=== PATIENT | male | born 1970 | race Caucasian/White ===

== ENCOUNTER 2017-02-04 13:51 | Inpatient (IN) | payer MEDICARE, OTHER ==
[~2017-02-04] VITALS: Ht 180.3 cm; Wt 132.0 kg
[~2017-02-04 13:51] MED LIST: VECURONIUM 10 MG ONE
[2017-02-04] MEDS ORDERED: SODIUM CHLORIDE FLUSH 10ML SYR IVF ONE (14:00)
[2017-02-04] MEDS ORDERED: MIDAZOLAM 1 MG/ML, 5ML ONE ×2 (14:11→14:20)
[2017-02-04] MEDS ORDERED: TICAGRELOR 90 MG TABLET ONE ×2 (14:11→14:20)
[2017-02-04] MEDS ORDERED: FENTANYL PF 100 MCG/2ML ONE ×2 (14:11→14:20)
[2017-02-04] MEDS ORDERED: BIVALIRUDIN 250 MG ONE ×2 (14:12→14:20)
[2017-02-04] MEDS ORDERED: LIDOCAINE 2%, 20ML ONE ×2 (14:12→14:20)
[2017-02-04] MEDS ORDERED: MORPHINE PO (14:15)
[2017-02-04] MEDS ORDERED: HEPARIN 1,000 UNITS/ML, 10ML ONE (14:20)
[2017-02-04] MEDS ORDERED: NITROGLYCERIN 0.4 MG BOTTLE (25 TABS) SL PRN (14:30)
[2017-02-04] MEDS ORDERED: morphine SULFATE 10 MG/ML, 1ML IVPush PRN ×2 (14:30→16:00)
[2017-02-04] MEDS ORDERED: NITROGLYCERIN 0.4 MG/SPRAY SL PRN (14:30)
[2017-02-04] MEDS ORDERED: VECURONIUM 10 MG IVPush ONE (14:30)
[2017-02-04] MEDS ORDERED: BIVALIRUDIN 250 MG in DEXTROSE 5% 50 ML IV SCH (15:04)
[2017-02-04 15:20] LABS: MEAN CORPUSCULAR HEMOGLOBIN 33.3 pg (27.5-34.5); MEAN CORPUSCULAR VOLUME 97.9 fL (81-97); MEAN PLATELET VOLUME 7.5 fL (7.4-10.4); PLATELET COUNT 247 x10^3/uL (130-400); RED BLOOD COUNT 4.82 x10^6/uL (4.38-5.82); RED CELL DISTRIBUTION WIDTH 12.9 % (9.4-14.8)
[2017-02-04] MEDS ORDERED: PROPOFOL 100 ML IV ONE (15:26)
[2017-02-04 15:29] LABS: ALBUMIN 3.4 g/dL (3.4-5.0); ANION GAP 9 mmol/L (5-15); CALCIUM 7.8 mg/dL (8.5-10.1); CHLORIDE 107 mmol/L (98-107); CREATININE 0.95 mg/dL (0.7-1.3)
[2017-02-04 15:44] LABS: MD YES
[2017-02-04 15:45] LABS: BAND#(MANUAL) 0.71 x10^3/uL; BANDS%(MANUAL) 3 % (0-7); LYMPH#(MANUAL) 2.13 x10^3/uL (1-3.4); LYMPHS% (MANUAL) 9 % (22-44); MONOS#(MANUAL) 0.47 x10^3/uL (0.3-2.7); MONOS% (MANUAL) 2 % (2-9); SEG#(MANUAL) 20.38 x10^3/uL (1.8-6.8); SEGS% (MANUAL) 86 % (42-75)
[2017-02-04 15:47] LABS: <PLATELET ESTIMATE> ADEQUATE; <PLT MORPHOLOGY> NORMAL PLT MORPH; <RBC MORPHOLOGY> NORMAL
[2017-02-04 16:00] LABS: INTERNATIONAL NORMALIZED RATIO 7.62 (0.93-1.1)
[2017-02-04] MEDS ORDERED: ASPIRIN 300 MG SUPP PR ONE (16:00)
[2017-02-04] MEDS ORDERED: POLYETHYLENE GLYCOL 17 GM PACKET PO PRN (16:00)
[2017-02-04] MEDS ORDERED: ONDANSETRON 2MG/ML, 2ML IVPush PRN (16:00)
[2017-02-04] MEDS ORDERED: LORazepam 2 MG/ML, 1ML IVPush PRN (16:00)
[2017-02-04] MEDS ORDERED: OXYcodone IR 5MG TABLET PO PRN (16:00)
[2017-02-04 16:01] LABS: PROTHROMBIN TIME 75.4 Seconds (9.6-11.5)
[2017-02-04] MEDS ORDERED: LEVETIRACETAM 100 MG/ML, 5ML IV SCH (16:30)
[2017-02-04 16:38] LABS: THYROID STIMULATING HORMONE 0.797 mIU/L (0.358-3.740)
[2017-02-04] MEDS ORDERED: DEXMEDETOMIDINE 200 MCG in SODIUM CHLORIDE 0.9% 48 ML IV PRN (17:11)
[2017-02-04] MEDS: ALBUTEROL/IPRATROPIUM 2.5MG/0.5MG, 3 ML INLINE SCH ×2 (17:30→21:30)
[2017-02-04] MEDS ORDERED: SENNOSIDES 8.8 MG/5 ML ORAL SOL NG PRN (17:30)
[2017-02-04] MEDS ORDERED: VECURONIUM 10 MG IVPush PRN (17:30)
[2017-02-04] MEDS: KSCALE TO 4.0 IV SCH ×2 (17:30→21:30)
[2017-02-04] MEDS ORDERED: SENNA/DOCUSATE TABLET NG PRN (17:30)
[2017-02-04] MEDS ORDERED: PHARMACY MAY ADJ FOR RENAL FX MC SCH (17:30)
[2017-02-04] MEDS ORDERED: LIDOCAINE-MPF 1%, 2ML ENDO PRN (17:30)
[2017-02-04] MEDS: OCULAR LUBRICANT OPHTH OINT 3.5 GM EACHEYE SCH (17:30)
[2017-02-04] MEDS ORDERED: LACTULOSE 20 GM/30 ML UDC NG PRN (17:30)
[2017-02-04] MEDS ORDERED: BISACODYL 10 MG SUPP PR PRN (17:30)
[2017-02-04] MEDS ORDERED: FENTANYL PF 100 MCG/2ML IVPush PRN (17:30)
[2017-02-04] MEDS ORDERED: SODIUM PHOSPHATE 20 MMOL in SODIUM CHLORIDE 0.9% 250 ML IVPB PRN (18:00)
[2017-02-04] MEDS: LEVETIRACETAM 500 MG in SODIUM CHLORIDE 0.9% 100 ML IV SCH (18:25)
[2017-02-04] MEDS: NS + 20MEQ KCL 1,000 ML IV SCH (18:37)
[2017-02-04 18:40] LABS: MICROSCOPIC INDICATED
[2017-02-04] MEDS: PROPOFOL 100 ML IV PRN ×3 (18:42→23:32)
[2017-02-04] MEDS: METOPROLOL TARTRATE 25 MG TABLET PO SCH (18:43)
[2017-02-04] MEDS: BUSPIRONE 10 MG TABLET NG SCH (18:43)
[2017-02-04] MEDS: FAMOTIDINE 20 MG/2 ML IV SCH (18:44)
[2017-02-04] MEDS: FENTANYL PF 250 MCG in SODIUM CHLORIDE 0.9% 250 ML IV PRN (21:19)
[2017-02-04] MEDS: FAMOTIDINE 20 MG/2 ML IVPush SCH (21:20)
[2017-02-04] MEDS: TICAGRELOR 90 MG TABLET PO SCH (21:22)
[2017-02-04] MEDS: ATORVASTATIN 80 MG TABLET PO SCH (21:22)
[2017-02-04] MEDS: MAGNESIUM SULFATE 1 GM in SODIUM CHLORIDE 0.9% 50 ML IVPB PRN (22:16)
[2017-02-05] MEDS: ALBUTEROL/IPRATROPIUM 2.5MG/0.5MG, 3 ML INLINE SCH ×6 (01:30→21:30)
[2017-02-05] MEDS: OCULAR LUBRICANT OPHTH OINT 3.5 GM EACHEYE SCH ×3 (01:30→17:42)
[2017-02-05] MEDS: KSCALE TO 4.0 IV SCH ×6 (01:30→21:30)
[2017-02-05] MEDS: BUSPIRONE 10 MG TABLET NG SCH ×3 (01:40→17:42)
[2017-02-05] MEDS: PROPOFOL 100 ML IV PRN ×5 (02:27→18:59)
[2017-02-05 03:52] VITALS: BP 122/80
[2017-02-05 04:56] LABS: BASOPHILS # (AUTO) 0.04 x10^3/uL (0-0.1); BASOPHILS % (AUTO) 0 % (0-1); EOSINOPHILS % (AUTO) 0 % (1-7); LYMPHOCYTES # (AUTO) 1.45 x10^3/uL (1-3.4); LYMPHOCYTES % (AUTO) 11 % (22-44); MD NO; MEAN CORPUSCULAR HEMOGLOBIN 33.5 pg (27.5-34.5); MEAN CORPUSCULAR HGB CONC 34.3 g/dL (33.2-36.2); MEAN CORPUSCULAR VOLUME 97.8 fL (81-97); MEAN PLATELET VOLUME 7.6 fL (7.4-10.4); MONOCYTES # (AUTO) 0.81 x10^3/uL (0.2-0.8); MONOCYTES % (AUTO) 6 % (2-9); NEUTROPHILS # (AUTO) 11.21 x10^3/uL (1.8-6.8); NEUTROPHILS % (AUTO) 83 % (42-75); PLATELET COUNT 212 x10^3/uL (130-400); RED BLOOD COUNT 5.12 x10^6/uL (4.38-5.82); RED CELL DISTRIBUTION WIDTH 13.1 % (9.4-14.8)
[2017-02-05] MEDS: LEVETIRACETAM 500 MG in SODIUM CHLORIDE 0.9% 100 ML IV SCH ×2 (04:59→17:41)
[2017-02-05 05:01] LABS: ALBUMIN 3.2 g/dL (3.4-5.0); ANION GAP 7 mmol/L (5-15); CALCIUM 7.9 mg/dL (8.5-10.1); CHLORIDE 110 mmol/L (98-107); CREATININE 0.55 mg/dL (0.7-1.3)
[2017-02-05 05:03] LABS: ALANINE AMINOTRANSFERASE 131 U/L (12-78); ALBUMIN 3.2 g/dL (3.4-5.0); ANION GAP 8 mmol/L (5-15); CHLORIDE 110 mmol/L (98-107); CREATININE 0.59 mg/dL (0.7-1.3)
[2017-02-05 05:07] LABS: ALKALINE PHOSPHATASE 90 U/L (45-117); BILIRUBIN,TOTAL 0.7 mg/dL (0.2-1.0); CHOL/HDL RATIO 6.7; CHOLESTEROL, TOTAL 194 mg/dL (140-239); HDL CHOL % 15 % (26-37); HDL CHOLESTEROL (DIRECT) 29 mg/dL (40-60); LDL CHOLESTEROL,CALCULATED 123 mg/dL (54-169); LDL/HDL RATIO 4.2 (0.5-3.0); TOTAL PROTEIN 6.5 g/dL (6.4-8.2); TRIGLYCERIDES 210 mg/dL (50-200); VLDL CHOLESTEROL 42 mg/dL (0-25)
[2017-02-05] MEDS: FAMOTIDINE 20 MG/2 ML IV SCH (05:36)
[2017-02-05] MEDS: METOPROLOL TARTRATE 25 MG TABLET PO SCH ×2 (05:41→17:42)
[2017-02-05] MEDS: NS + 20MEQ KCL 1,000 ML IV SCH ×2 (06:16→17:41)
[2017-02-05] MEDS: ASPIRIN 81 MG TABLET EC PO SCH (08:27)
[2017-02-05] MEDS: SENNA/DOCUSATE TABLET PO SCH (08:27)
[2017-02-05] MEDS: FAMOTIDINE 20 MG/2 ML IVPush SCH ×2 (08:27→21:15)
[2017-02-05] MEDS: TICAGRELOR 90 MG TABLET PO SCH ×2 (08:27→21:15)
[2017-02-05] MEDS ORDERED: ASPIRIN 325 MG TABLET EC PO SCH (09:00)
[2017-02-05 13:12] LABS: INTERNATIONAL NORMALIZED RATIO 0.98 (0.93-1.1); PROTHROMBIN TIME 10.1 Seconds (9.6-11.5)
[2017-02-05] MEDS: FENTANYL PF 250 MCG in SODIUM CHLORIDE 0.9% 250 ML IV PRN (17:42)
[2017-02-05] MEDS: ATORVASTATIN 80 MG TABLET PO SCH (21:15)
[2017-02-06] MEDS: BUSPIRONE 10 MG TABLET NG SCH ×2 (01:30→09:17)
[2017-02-06] MEDS ORDERED: SODIUM CHLORIDE 0.9%, 500ML IVBOLUS ONE ×2 (01:30→08:00)
[2017-02-06] MEDS ORDERED: DOPAMINE/D5W PMX 250 ML IV PRN (01:30)
[2017-02-06] MEDS: KSCALE TO 4.0 IV SCH ×6 (01:30→21:30)
[2017-02-06] MEDS: ALBUTEROL/IPRATROPIUM 2.5MG/0.5MG, 3 ML INLINE SCH ×5 (01:30→22:30)
[2017-02-06] MEDS: OCULAR LUBRICANT OPHTH OINT 3.5 GM EACHEYE SCH ×3 (02:51→17:43)
[2017-02-06] MEDS ORDERED: SODIUM CHLORIDE 0.9% 1,000ML IVBOLUS ONE (03:00)
[2017-02-06] MEDS ORDERED: AMIODARONE 150 MG in DEXTROSE 5% 100 ML IV ONE (03:00)
[2017-02-06] MEDS ORDERED: PHENYLEPHRINE 20 MG in SODIUM CHLORIDE 0.9% 248 ML IV PRN (03:30)
[2017-02-06 04:00] VITALS: BP 92/67
[2017-02-06] MEDS: PROPOFOL 100 ML IV PRN ×6 (04:35→23:23)
[2017-02-06] MEDS: METOPROLOL TARTRATE 25 MG TABLET PO SCH ×2 (06:00→17:46)
[2017-02-06] MEDS: LEVETIRACETAM 500 MG in SODIUM CHLORIDE 0.9% 100 ML IV SCH ×2 (06:00→17:43)
[2017-02-06 06:09] LABS: MEAN CORPUSCULAR HEMOGLOBIN 33.8 pg (27.5-34.5); MEAN CORPUSCULAR HGB CONC 34.2 g/dL (33.2-36.2); MEAN CORPUSCULAR VOLUME 98.7 fL (81-97); MEAN PLATELET VOLUME 8.3 fL (7.4-10.4); PLATELET COUNT 227 x10^3/uL (130-400); RED BLOOD COUNT 5.12 x10^6/uL (4.38-5.82); RED CELL DISTRIBUTION WIDTH 13.9 % (9.4-14.8)
[2017-02-06 06:19] LABS: CHLORIDE 110 mmol/L (98-107)
[2017-02-06 06:32] LABS: ANION GAP 9 mmol/L (5-15); CALCIUM 7.7 mg/dL (8.5-10.1)
[2017-02-06] MEDS ORDERED: NOREPINEPHRINE 4 MG in SODIUM CHLORIDE 0.9% 246 ML IV PRN (07:30)
[2017-02-06 07:48] LABS: MD YES
[2017-02-06 08:03] LABS: LYMPH#(MANUAL) 1.21 x10^3/uL (1-3.4); LYMPHS% (MANUAL) 6 % (22-44); MONOS% (MANUAL) 4 % (2-9)
[2017-02-06 08:04] LABS: <PLATELET ESTIMATE> ADEQUATE; <PLT MORPHOLOGY> NORMAL PLT MORPH; ANISOCYTOSIS 1+; BAND#(MANUAL) 2.41 x10^3/uL; BANDS%(MANUAL) 12 % (0-7); SEG#(MANUAL) 15.68 x10^3/uL (1.8-6.8); SEGS% (MANUAL) 78 % (42-75)
[2017-02-06] MEDS: ASPIRIN 81 MG TABLET EC PO SCH (09:17)
[2017-02-06] MEDS: SENNA/DOCUSATE TABLET PO SCH (09:17)
[2017-02-06] MEDS: FAMOTIDINE 20 MG/2 ML IVPush SCH ×2 (09:17→21:20)
[2017-02-06] MEDS: TICAGRELOR 90 MG TABLET PO SCH ×2 (09:17→21:20)
[2017-02-06] MEDS: PIPERACILLIN/TAZO/PMX 3.375GM 50 ML IV SCH ×3 (11:11→23:02)
[2017-02-06] MEDS: NS + 20MEQ KCL 1,000 ML IV SCH (11:12)
[2017-02-06] MEDS: SODIUM BICARBONATE 8.4% 150 MEQ in DEXTROSE 5% 1,000 ML IV SCH ×2 (11:55→23:05)
[2017-02-06] MEDS: MAGNESIUM SULFATE 1 GM in SODIUM CHLORIDE 0.9% 50 ML IVPB PRN ×2 (15:07→23:11)
[2017-02-06] MEDS ORDERED: FUROSEMIDE 20 MG/2 ML IV ONE (16:30)
[2017-02-06] MEDS: FENTANYL PF 250 MCG in SODIUM CHLORIDE 0.9% 250 ML IV PRN (17:49)
[2017-02-06] MEDS: ATORVASTATIN 80 MG TABLET PO SCH (21:20)
[2017-02-06] MEDS: AMIODARONE 900 MG in DEXTROSE 5% 482 ML IV PRN (23:04)
[2017-02-07] MEDS: FENTANYL PF 250 MCG in SODIUM CHLORIDE 0.9% 250 ML IV PRN ×4 (00:54→20:03)
[2017-02-07] MEDS: KSCALE TO 4.0 IV SCH ×2 (01:30→05:30)
[2017-02-07] MEDS: ALBUTEROL/IPRATROPIUM 2.5MG/0.5MG, 3 ML INLINE SCH ×6 (02:00→22:35)
[2017-02-07] MEDS: OCULAR LUBRICANT OPHTH OINT 3.5 GM EACHEYE SCH ×3 (02:07→17:30)
[2017-02-07] MEDS: PROPOFOL 100 ML IV PRN ×5 (03:32→23:30)
[2017-02-07] MEDS: LEVETIRACETAM 500 MG in SODIUM CHLORIDE 0.9% 100 ML IV SCH ×2 (04:30→17:58)
[2017-02-07 05:00] LABS: MEAN CORPUSCULAR HEMOGLOBIN 33.6 pg (27.5-34.5); MEAN CORPUSCULAR HGB CONC 34.2 g/dL (33.2-36.2); MEAN CORPUSCULAR VOLUME 98.3 fL (81-97); PLATELET COUNT 141 x10^3/uL (130-400); RED BLOOD COUNT 4.57 x10^6/uL (4.38-5.82); RED CELL DISTRIBUTION WIDTH 13.7 % (9.4-14.8)
[2017-02-07] MEDS: PIPERACILLIN/TAZO/PMX 3.375GM 50 ML IV SCH ×4 (05:10→23:28)
[2017-02-07 05:12] LABS: ANION GAP 9 mmol/L (5-15); CALCIUM 6.9 mg/dL (8.5-10.1); CHLORIDE 111 mmol/L (98-107); CREATININE 1.05 mg/dL (0.7-1.3); TRIGLYCERIDES 198 mg/dL (50-200)
[2017-02-07] MEDS: METOPROLOL TARTRATE 25 MG TABLET PO SCH ×2 (05:13→18:00)
[2017-02-07] MEDS ORDERED: POTASSIUM CHLORIDE PMX 100 ML IV ONE (06:00)
[2017-02-07 06:11] LABS: MD YES
[2017-02-07 06:13] LABS: BANDS%(MANUAL) 16 % (0-7); LYMPH#(MANUAL) 0.78 x10^3/uL (1-3.4); LYMPHS% (MANUAL) 4 % (22-44); MONOS#(MANUAL) 0.78 x10^3/uL (0.3-2.7); MONOS% (MANUAL) 4 % (2-9); SEG#(MANUAL) 14.74 x10^3/uL (1.8-6.8); SEGS% (MANUAL) 76 % (42-75)
[2017-02-07 06:14] LABS: <PLT MORPHOLOGY> NORMAL PLT MORPH; <RBC MORPHOLOGY> NORMAL
[2017-02-07 06:16] LABS: <PLATELET ESTIMATE> ADEQUATE
[2017-02-07] MEDS: FAMOTIDINE 20 MG/2 ML IVPush SCH ×2 (10:41→20:30)
[2017-02-07] MEDS: TICAGRELOR 90 MG TABLET PO SCH ×2 (10:42→20:30)
[2017-02-07] MEDS: SENNA/DOCUSATE TABLET PO SCH (10:42)
[2017-02-07] MEDS: ASPIRIN 81 MG TABLET EC PO SCH (10:42)
[2017-02-07] MEDS ORDERED: SODIUM CHLORIDE 0.9% 100 ML IV SCH (14:00)
[2017-02-07] MEDS ORDERED: SODIUM CHLORIDE 0.9%, 500ML IVBOLUS ONE (16:00)
[2017-02-07] MEDS: SODIUM BICARBONATE 8.4% 150 MEQ in DEXTROSE 5% 1,000 ML IV SCH (20:03)
[2017-02-07] MEDS: ATORVASTATIN 80 MG TABLET PO SCH (20:30)
[2017-02-07] MEDS ORDERED: FENTANYL IV PRN (21:00)
[2017-02-07] MEDS ORDERED: SODIUM CHLORIDE 0.9% IV PRN (21:00)
[2017-02-08] MEDS: ALBUTEROL/IPRATROPIUM 2.5MG/0.5MG, 3 ML INLINE SCH ×6 (02:40→22:01)
[2017-02-08] MEDS: OCULAR LUBRICANT OPHTH OINT 3.5 GM EACHEYE SCH ×3 (03:49→18:05)
[2017-02-08 04:30] LABS: ANION GAP 8 mmol/L (5-15); CALCIUM 6.8 mg/dL (8.5-10.1); CHLORIDE 106 mmol/L (98-107); CREATININE 1.46 mg/dL (0.7-1.3); MEAN CORPUSCULAR HEMOGLOBIN 33.3 pg (27.5-34.5); MEAN CORPUSCULAR VOLUME 98.1 fL (81-97); MEAN PLATELET VOLUME 8.5 fL (7.4-10.4); PLATELET COUNT 143 x10^3/uL (130-400); RED BLOOD COUNT 4.22 x10^6/uL (4.38-5.82)
[2017-02-08] MEDS: LEVETIRACETAM 500 MG in SODIUM CHLORIDE 0.9% 100 ML IV SCH ×2 (04:57→17:24)
[2017-02-08] MEDS: METOPROLOL TARTRATE 25 MG TABLET PO SCH ×2 (05:08→18:00)
[2017-02-08 05:26] LABS: MD YES
[2017-02-08] MEDS: PIPERACILLIN/TAZO/PMX 3.375GM 50 ML IV SCH ×4 (05:26→22:59)
[2017-02-08] MEDS: FILTER 0.22 MICRON IV PRN (05:26)
[2017-02-08 05:28] LABS: <PLATELET ESTIMATE> ADEQUATE; <PLT MORPHOLOGY> NORMAL PLT MORPH; ANISOCYTOSIS 1+; BAND#(MANUAL) 2.59 x10^3/uL; BANDS%(MANUAL) 18 % (0-7); LYMPHS% (MANUAL) 9 % (22-44); MONOS#(MANUAL) 0.14 x10^3/uL (0.3-2.7); MONOS% (MANUAL) 1 % (2-9); SEG#(MANUAL) 10.37 x10^3/uL (1.8-6.8); SEGS% (MANUAL) 72 % (42-75)
[2017-02-08] MEDS: AMIODARONE 900 MG in DEXTROSE 5% 482 ML IV PRN (05:28)
[2017-02-08] MEDS: PROPOFOL 100 ML IV PRN ×7 (05:34→22:38)
[2017-02-08] MEDS: ASPIRIN 81 MG TABLET EC PO SCH (09:18)
[2017-02-08] MEDS: SENNA/DOCUSATE TABLET PO SCH (09:18)
[2017-02-08] MEDS: TICAGRELOR 90 MG TABLET PO SCH ×2 (09:18→21:18)
[2017-02-08] MEDS: FAMOTIDINE 20 MG/2 ML IVPush SCH ×2 (09:18→21:18)
[2017-02-08] MEDS: SODIUM BICARBONATE 8.4% 150 MEQ in DEXTROSE 5% 1,000 ML IV SCH ×2 (09:18→18:04)
[2017-02-08] MEDS: VECURONIUM 50 MG in SODIUM CHLORIDE 0.9% 250 ML IV PRN ×3 (09:19→20:15)
[2017-02-08] MEDS ORDERED: FENTANYL IV PRN (10:00)
[2017-02-08] MEDS ORDERED: SODIUM CHLORIDE 0.9% IV PRN (10:00)
[2017-02-08] MEDS: HEPARIN 5,000 UNITS/ML, 1ML SQ SCH ×2 (10:44→19:15)
[2017-02-08] MEDS: SODIUM CHLORIDE 0.9% IV PRN (18:05)
[2017-02-08] MEDS: FENTANYL IV PRN (18:05)
[2017-02-08] MEDS ORDERED: FUROSEMIDE 20 MG/2 ML IV ONE ×2 (20:00→22:00)
[2017-02-08] MEDS: ATORVASTATIN 80 MG TABLET PO SCH (21:18)
[2017-02-09] MEDS: FENTANYL IV PRN ×3 (00:56→20:00)
[2017-02-09] MEDS: SODIUM CHLORIDE 0.9% IV PRN ×3 (00:56→20:00)
[2017-02-09] MEDS: OCULAR LUBRICANT OPHTH OINT 3.5 GM EACHEYE SCH ×3 (00:57→17:32)
[2017-02-09] MEDS: ALBUTEROL/IPRATROPIUM 2.5MG/0.5MG, 3 ML INLINE SCH ×7 (01:55→22:09)
[2017-02-09] MEDS: HEPARIN 5,000 UNITS/ML, 1ML SQ SCH ×3 (02:15→18:36)
[2017-02-09] MEDS: LEVETIRACETAM 500 MG in SODIUM CHLORIDE 0.9% 100 ML IV SCH ×2 (04:28→17:11)
[2017-02-09 04:44] LABS: MEAN CORPUSCULAR HEMOGLOBIN 33.7 pg (27.5-34.5); MEAN CORPUSCULAR HGB CONC 34.2 g/dL (33.2-36.2); MEAN CORPUSCULAR VOLUME 98.4 fL (81-97); MEAN PLATELET VOLUME 8.1 fL (7.4-10.4); PLATELET COUNT 137 x10^3/uL (130-400); RED BLOOD COUNT 3.97 x10^6/uL (4.38-5.82); RED CELL DISTRIBUTION WIDTH 14.1 % (9.4-14.8)
[2017-02-09 04:57] LABS: CHLORIDE 103 mmol/L (98-107)
[2017-02-09 05:04] LABS: ALANINE AMINOTRANSFERASE 38 U/L (12-78); ALBUMIN 1.7 g/dL (3.4-5.0); ALKALINE PHOSPHATASE 89 U/L (45-117); ANION GAP 4 mmol/L (5-15); CALCIUM 7.3 mg/dL (8.5-10.1); CREATININE 1.39 mg/dL (0.7-1.3); TOTAL PROTEIN 5.1 g/dL (6.4-8.2)
[2017-02-09] MEDS: PIPERACILLIN/TAZO/PMX 3.375GM 50 ML IV SCH (05:19)
[2017-02-09] MEDS: METOPROLOL TARTRATE 25 MG TABLET PO SCH ×2 (05:23→18:36)
[2017-02-09] MEDS: SODIUM BICARBONATE 8.4% 150 MEQ in DEXTROSE 5% 1,000 ML IV SCH ×3 (05:42→22:48)
[2017-02-09] MEDS: PROPOFOL 100 ML IV PRN ×4 (05:49→20:49)
[2017-02-09 05:50] LABS: BASOPHILS % (AUTO) 0 % (0-1); EOSINOPHILS # (AUTO) 0.15 x10^3/uL (0-0.4); EOSINOPHILS % (AUTO) 1 % (1-7); LYMPHOCYTES # (AUTO) 1.08 x10^3/uL (1-3.4); LYMPHOCYTES % (AUTO) 8 % (22-44); MD SCAN; MONOCYTES # (AUTO) 0.04 x10^3/uL (0.2-0.8); MONOCYTES % (AUTO) 0 % (2-9); NEUTROPHILS # (AUTO) 11.58 x10^3/uL (1.8-6.8); NEUTROPHILS % (AUTO) 90 % (42-75)
[2017-02-09] MEDS: CEFAZOLIN PMX 2GM/50ML 50 ML IVPB SCH ×2 (09:01→17:26)
[2017-02-09] MEDS: POTASSIUM CHLORIDE PMX 100 ML IV SCH ×2 (09:04→20:09)
[2017-02-09] MEDS: ASPIRIN 81 MG TABLET EC PO SCH (09:19)
[2017-02-09] MEDS: TICAGRELOR 90 MG TABLET PO SCH ×2 (09:19→20:19)
[2017-02-09] MEDS: SENNA/DOCUSATE TABLET PO SCH (09:19)
[2017-02-09] MEDS: ALBUMIN HUMAN 25% 100 ML IV SCH ×2 (09:20→20:09)
[2017-02-09] MEDS: AMIODARONE 900 MG in DEXTROSE 5% 482 ML IV PRN (09:20)
[2017-02-09] MEDS: FAMOTIDINE 20 MG/2 ML IVPush SCH ×2 (09:20→20:19)
[2017-02-09] MEDS ORDERED: FENTANYL IV PRN (10:00)
[2017-02-09] MEDS ORDERED: SODIUM CHLORIDE 0.9% IV PRN (10:00)
[2017-02-09] MEDS: FUROSEMIDE 40 MG/4 ML IV SCH ×2 (11:50→17:26)
[2017-02-09] MEDS: ATORVASTATIN 80 MG TABLET PO SCH (20:19)
[2017-02-10] MEDS: VECURONIUM 50 MG in SODIUM CHLORIDE 0.9% 250 ML IV PRN (00:01)
[2017-02-10] MEDS: OCULAR LUBRICANT OPHTH OINT 3.5 GM EACHEYE SCH ×3 (02:08→17:04)
[2017-02-10] MEDS: PROPOFOL 100 ML IV PRN ×6 (02:09→21:39)
[2017-02-10] MEDS: HEPARIN 5,000 UNITS/ML, 1ML SQ SCH ×3 (02:11→17:51)
[2017-02-10] MEDS: ALBUTEROL/IPRATROPIUM 2.5MG/0.5MG, 3 ML INLINE SCH ×5 (03:08→22:37)
[2017-02-10 04:34] LABS: MEAN CORPUSCULAR HEMOGLOBIN 33.1 pg (27.5-34.5); MEAN CORPUSCULAR HGB CONC 33.4 g/dL (33.2-36.2); MEAN CORPUSCULAR VOLUME 99.1 fL (81-97); MEAN PLATELET VOLUME 7.9 fL (7.4-10.4); PLATELET COUNT 129 x10^3/uL (130-400); RED BLOOD COUNT 3.92 x10^6/uL (4.38-5.82); RED CELL DISTRIBUTION WIDTH 14.1 % (9.4-14.8)
[2017-02-10] MEDS: LEVETIRACETAM 500 MG in SODIUM CHLORIDE 0.9% 100 ML IV SCH ×2 (04:34→17:02)
[2017-02-10 04:43] LABS: CALCIUM 7.5 mg/dL (8.5-10.1); CHLORIDE 96 mmol/L (98-107)
[2017-02-10 04:44] LABS: TRIGLYCERIDES 310 mg/dL (50-200)
[2017-02-10] MEDS: FENTANYL IV PRN ×2 (04:51→16:33)
[2017-02-10] MEDS: SODIUM CHLORIDE 0.9% IV PRN ×2 (04:51→16:33)
[2017-02-10 04:53] LABS: MD YES
[2017-02-10 04:54] LABS: ANISOCYTOSIS 1+; BAND#(MANUAL) 0.89 x10^3/uL; BANDS%(MANUAL) 6 % (0-7); LYMPH#(MANUAL) 0.75 x10^3/uL (1-3.4); LYMPHS% (MANUAL) 5 % (22-44); MONOS#(MANUAL) 0.15 x10^3/uL (0.3-2.7); MONOS% (MANUAL) 1 % (2-9); SEG#(MANUAL) 13.11 x10^3/uL (1.8-6.8); SEGS% (MANUAL) 88 % (42-75)
[2017-02-10 04:55] LABS: BASOPHILLIC STIPPLING 1+; POLYCHROMASIA 1+
[2017-02-10 04:56] LABS: <PLATELET ESTIMATE> ADEQUATE; <PLT MORPHOLOGY> NORMAL PLT MORPH
[2017-02-10 05:01] LABS: ANION GAP 7 mmol/L (5-15)
[2017-02-10] MEDS: METOPROLOL TARTRATE 25 MG TABLET PO SCH ×2 (05:27→17:51)
[2017-02-10] MEDS: SODIUM BICARBONATE 8.4% 150 MEQ in DEXTROSE 5% 1,000 ML IV SCH ×2 (07:04→17:51)
[2017-02-10] MEDS: CEFAZOLIN PMX 2GM/50ML 50 ML IVPB SCH ×3 (08:14→16:39)
[2017-02-10] MEDS: TICAGRELOR 90 MG TABLET PO SCH ×2 (08:17→21:32)
[2017-02-10] MEDS: ASPIRIN 81 MG TABLET EC PO SCH (08:17)
[2017-02-10] MEDS: SENNA/DOCUSATE TABLET PO SCH (08:17)
[2017-02-10] MEDS: FAMOTIDINE 20 MG/2 ML IVPush SCH ×2 (08:17→21:32)
[2017-02-10] MEDS: AMIODARONE 900 MG in DEXTROSE 5% 482 ML IV PRN (16:32)
[2017-02-10 17:08] LABS: CHLORIDE,URINE RANDOM 14 mmol/L; POTASSIUM,URINE RANDOM 42 mmol/L; SODIUM,URINE RANDOM 7 mmol/L
[2017-02-10] MEDS: ATORVASTATIN 80 MG TABLET PO SCH (21:32)
[2017-02-11] MEDS: PROPOFOL 100 ML IV PRN ×3 (00:16→08:04)
[2017-02-11] MEDS: CEFAZOLIN PMX 2GM/50ML 50 ML IVPB SCH ×3 (00:16→16:36)
[2017-02-11] MEDS: OCULAR LUBRICANT OPHTH OINT 3.5 GM EACHEYE SCH ×3 (00:17→17:30)
[2017-02-11] MEDS: ALBUTEROL/IPRATROPIUM 2.5MG/0.5MG, 3 ML INLINE SCH ×6 (02:50→22:00)
[2017-02-11] MEDS: SODIUM CHLORIDE 0.9% IV PRN (03:34)
[2017-02-11] MEDS: FENTANYL IV PRN (03:34)
[2017-02-11] MEDS: HEPARIN 5,000 UNITS/ML, 1ML SQ SCH ×3 (04:21→22:27)
[2017-02-11 04:52] LABS: MEAN CORPUSCULAR HEMOGLOBIN 33.3 pg (27.5-34.5); MEAN CORPUSCULAR HGB CONC 33.7 g/dL (33.2-36.2); MEAN CORPUSCULAR VOLUME 98.9 fL (81-97); MEAN PLATELET VOLUME 7.7 fL (7.4-10.4); PLATELET COUNT 132 x10^3/uL (130-400); RED BLOOD COUNT 3.75 x10^6/uL (4.38-5.82); RED CELL DISTRIBUTION WIDTH 13.9 % (9.4-14.8)
[2017-02-11] MEDS: METOPROLOL TARTRATE 25 MG TABLET PO SCH ×2 (05:01→18:11)
[2017-02-11] MEDS: LEVETIRACETAM 500 MG in SODIUM CHLORIDE 0.9% 100 ML IV SCH ×2 (05:01→18:00)
[2017-02-11 05:03] LABS: ANION GAP 3 mmol/L (5-15); CALCIUM 8.1 mg/dL (8.5-10.1); CHLORIDE 94 mmol/L (98-107); CREATININE 1.19 mg/dL (0.7-1.3)
[2017-02-11 05:21] LABS: MD YES
[2017-02-11 05:23] LABS: <PLATELET ESTIMATE> ADEQUATE; <PLT MORPHOLOGY> NORMAL PLT MORPH; ANISOCYTOSIS 1+; BANDS%(MANUAL) 7 % (0-7); BASOPHILLIC STIPPLING 1+; EOS#(MANUAL) 0.34 x10^3/uL (0.0-0.4); EOS% (MANUAL) 3 % (1-7); LYMPHS% (MANUAL) 14 % (22-44); METAMYELOCYTES# (MANUAL) 0.23 x10^3/uL (0-0); METAMYELOCYTES% (MANUAL) 2 % (0-1); MONOS#(MANUAL) 0.46 x10^3/uL (0.3-2.7); MONOS% (MANUAL) 4 % (2-9); POLYCHROMASIA 1+; SEG#(MANUAL) 7.98 x10^3/uL (1.8-6.8); SEGS% (MANUAL) 70 % (42-75)
[2017-02-11] MEDS: SODIUM BICARBONATE 8.4% 150 MEQ in DEXTROSE 5% 1,000 ML IV SCH (06:16)
[2017-02-11] MEDS: FAMOTIDINE 20 MG/2 ML IVPush SCH ×2 (08:08→22:29)
[2017-02-11] MEDS: TICAGRELOR 90 MG TABLET PO SCH ×2 (08:08→22:27)
[2017-02-11] MEDS: POTASSIUM CHLORIDE 10% 40 MEQ/30 ML UDC PO SCH ×2 (08:08→22:27)
[2017-02-11] MEDS: ASPIRIN 81 MG TABLET EC PO SCH (08:08)
[2017-02-11] MEDS: SENNA/DOCUSATE TABLET PO SCH (08:09)
[2017-02-11] MEDS: ENALAPRILAT 1.25 MG/ML, 2ML IVPush PRN ×2 (08:33→12:50)
[2017-02-11] MEDS: hydrALAzine 20 MG/ML, 1ML IV PRN (10:59)
[2017-02-11] MEDS: ALBUMIN HUMAN 25% 100 ML IV SCH ×2 (11:00→22:27)
[2017-02-11] MEDS ORDERED: LABETALOL 5MG/ML, 20ML IVPush ONE (12:00)
[2017-02-11] MEDS: METHYLNALTREXONE 12 MG/0.6 ML SQ SCH (12:42)
[2017-02-11] MEDS: FUROSEMIDE 40 MG/4 ML IV SCH (12:50)
[2017-02-11] MEDS: morphine SULFATE 125 MG in SODIUM CHLORIDE 0.9% 237.5 ML IV PRN (18:00)
[2017-02-11] MEDS: ATORVASTATIN 80 MG TABLET PO SCH (22:27)
[2017-02-11] MEDS: FILTER 0.22 MICRON IV PRN (23:45)
[2017-02-11] MEDS: AMIODARONE 900 MG in DEXTROSE 5% 482 ML IV PRN (23:45)
[2017-02-12] MEDS: PROPOFOL 100 ML IV PRN ×2 (00:13→06:38)
[2017-02-12] MEDS: FUROSEMIDE 40 MG/4 ML IV SCH ×3 (01:04→22:52)
[2017-02-12] MEDS: OCULAR LUBRICANT OPHTH OINT 3.5 GM EACHEYE SCH ×3 (01:05→17:15)
[2017-02-12] MEDS: CEFAZOLIN PMX 2GM/50ML 50 ML IVPB SCH ×3 (01:05→17:07)
[2017-02-12] MEDS: ALBUTEROL/IPRATROPIUM 2.5MG/0.5MG, 3 ML INLINE SCH ×6 (02:00→22:00)
[2017-02-12 04:23] LABS: MEAN CORPUSCULAR HEMOGLOBIN 33.4 pg (27.5-34.5); MEAN CORPUSCULAR HGB CONC 34.4 g/dL (33.2-36.2); MEAN CORPUSCULAR VOLUME 97.2 fL (81-97); MEAN PLATELET VOLUME 7.3 fL (7.4-10.4); PLATELET COUNT 146 x10^3/uL (130-400); RED BLOOD COUNT 3.86 x10^6/uL (4.38-5.82)
[2017-02-12 04:33] LABS: ANION GAP 7 mmol/L (5-15); CALCIUM 8.4 mg/dL (8.5-10.1); CHLORIDE 97 mmol/L (98-107); CREATININE 1.25 mg/dL (0.7-1.3)
[2017-02-12] MEDS: LEVETIRACETAM 500 MG in SODIUM CHLORIDE 0.9% 100 ML IV SCH ×2 (05:32→18:13)
[2017-02-12] MEDS: METOPROLOL TARTRATE 25 MG TABLET PO SCH ×2 (05:33→17:17)
[2017-02-12] MEDS: HEPARIN 5,000 UNITS/ML, 1ML SQ SCH ×3 (05:33→21:02)
[2017-02-12 05:58] LABS: MD YES
[2017-02-12 06:00] LABS: ANISOCYTOSIS 1+; BAND#(MANUAL) 0.71 x10^3/uL; BANDS%(MANUAL) 5 % (0-7); LYMPH#(MANUAL) 0.56 x10^3/uL (1-3.4); LYMPHS% (MANUAL) 4 % (22-44); METAMYELOCYTES# (MANUAL) 0.28 x10^3/uL (0-0); METAMYELOCYTES% (MANUAL) 2 % (0-1); MONOS#(MANUAL) 1.27 x10^3/uL (0.3-2.7); MONOS% (MANUAL) 9 % (2-9); POLYCHROMASIA 1+; SEG#(MANUAL) 11.28 x10^3/uL (1.8-6.8); SEGS% (MANUAL) 80 % (42-75)
[2017-02-12 06:01] LABS: TOXIC GRAN 1+
[2017-02-12 06:03] LABS: <PLATELET ESTIMATE> ADEQUATE; <PLT MORPHOLOGY> NORMAL PLT MORPH
[2017-02-12] MEDS: POTASSIUM CHLORIDE 10% 40 MEQ/30 ML UDC PO SCH ×2 (08:12→21:01)
[2017-02-12] MEDS: ASPIRIN 81 MG TABLET EC PO SCH (08:13)
[2017-02-12] MEDS: FAMOTIDINE 20 MG/2 ML IVPush SCH ×2 (08:13→21:01)
[2017-02-12] MEDS: SENNA/DOCUSATE TABLET PO SCH (08:13)
[2017-02-12] MEDS: TICAGRELOR 90 MG TABLET PO SCH ×2 (08:13→21:01)
[2017-02-12] MEDS: ALBUMIN HUMAN 25% 100 ML IV SCH ×2 (09:42→21:01)
[2017-02-12] MEDS: morphine SULFATE 125 MG in SODIUM CHLORIDE 0.9% 237.5 ML IV PRN (18:45)
[2017-02-12] MEDS: ATORVASTATIN 80 MG TABLET PO SCH (21:01)
[2017-02-13] MEDS: CEFAZOLIN PMX 2GM/50ML 50 ML IVPB SCH ×4 (00:39→23:10)
[2017-02-13] MEDS: OCULAR LUBRICANT OPHTH OINT 3.5 GM EACHEYE SCH ×3 (00:39→17:08)
[2017-02-13] MEDS: ALBUTEROL/IPRATROPIUM 2.5MG/0.5MG, 3 ML INLINE SCH ×6 (01:53→22:00)
[2017-02-13] MEDS: LEVETIRACETAM 500 MG in SODIUM CHLORIDE 0.9% 100 ML IV SCH (04:37)
[2017-02-13] MEDS: AMIODARONE 900 MG in DEXTROSE 5% 482 ML IV PRN (04:38)
[2017-02-13] MEDS: HEPARIN 5,000 UNITS/ML, 1ML SQ SCH ×3 (04:38→21:06)
[2017-02-13] MEDS: METOPROLOL TARTRATE 25 MG TABLET PO SCH ×2 (04:47→17:08)
[2017-02-13] MEDS: ACETAMINOPHEN 325 MG TABLET PO PRN ×3 (04:50→16:29)
[2017-02-13 05:11] LABS: BASOPHILS # (AUTO) 0.01 x10^3/uL (0-0.1); BASOPHILS % (AUTO) 0 % (0-1); EOSINOPHILS # (AUTO) 0.18 x10^3/uL (0-0.4); EOSINOPHILS % (AUTO) 1 % (1-7); LYMPHOCYTES # (AUTO) 0.86 x10^3/uL (1-3.4); LYMPHOCYTES % (AUTO) 6 % (22-44); MD NO; MEAN CORPUSCULAR HEMOGLOBIN 33.5 pg (27.5-34.5); MEAN CORPUSCULAR HGB CONC 33.8 g/dL (33.2-36.2); MEAN CORPUSCULAR VOLUME 99.1 fL (81-97); MEAN PLATELET VOLUME 7.1 fL (7.4-10.4); MONOCYTES # (AUTO) 0.57 x10^3/uL (0.2-0.8); MONOCYTES % (AUTO) 4 % (2-9); NEUTROPHILS # (AUTO) 11.89 x10^3/uL (1.8-6.8); NEUTROPHILS % (AUTO) 88 % (42-75); PLATELET COUNT 162 x10^3/uL (130-400); RED BLOOD COUNT 3.55 x10^6/uL (4.38-5.82); RED CELL DISTRIBUTION WIDTH 14.4 % (9.4-14.8)
[2017-02-13 05:16] LABS: ANION GAP 4 mmol/L (5-15); CALCIUM 8.5 mg/dL (8.5-10.1); CHLORIDE 97 mmol/L (98-107)
[2017-02-13 05:18] LABS: CREATININE 1.31 mg/dL (0.7-1.3); TRIGLYCERIDES 219 mg/dL (50-200)
[2017-02-13] MEDS ORDERED: POTASSIUM CHLORIDE 10% 40 MEQ/30 ML UDC NG ONE (06:00)
[2017-02-13] MEDS: KSCALE TO 4.5 IV SCH ×3 (08:00→23:30)
[2017-02-13] MEDS: ASPIRIN 81 MG TABLET CHEW PO SCH (09:51)
[2017-02-13] MEDS: ALBUMIN HUMAN 25% 100 ML IV SCH ×2 (09:51→19:51)
[2017-02-13] MEDS: TICAGRELOR 90 MG TABLET PO SCH ×2 (09:51→21:06)
[2017-02-13] MEDS: FAMOTIDINE 20 MG/2 ML IVPush SCH ×2 (09:51→21:05)
[2017-02-13] MEDS: AcetaZOLAMIDE INJ 500 MG IVPush SCH ×2 (09:51→21:06)
[2017-02-13] MEDS: SENNA/DOCUSATE TABLET PO SCH (09:52)
[2017-02-13] MEDS ORDERED: POTASSIUM CHLORIDE 30 MEQ in SODIUM CHLORIDE 0.9% 100 ML IV ONE ×2 (11:00→16:30)
[2017-02-13] MEDS: METHYLNALTREXONE 12 MG/0.6 ML SQ SCH (12:51)
[2017-02-13 13:13] LABS: MICROSCOPIC AUTO
[2017-02-13 13:16] LABS: CULTURE INDICATED? NO
[2017-02-13] MEDS: PROPOFOL 100 ML IV PRN ×2 (15:10→21:43)
[2017-02-13] MEDS: morphine SULFATE 125 MG in SODIUM CHLORIDE 0.9% 237.5 ML IV PRN (16:03)
[2017-02-13] MEDS: hydrALAzine 20 MG/ML, 1ML IV PRN (16:03)
[2017-02-13] MEDS: LEVETIRACETAM 1,000 MG in SODIUM CHLORIDE 0.9% 100 ML IV SCH (17:08)
[2017-02-13] MEDS: ENALAPRILAT 1.25 MG/ML, 2ML IVPush PRN (17:26)
[2017-02-13] MEDS: ATORVASTATIN 80 MG TABLET PO SCH (21:06)
[2017-02-13] MEDS ORDERED: LORazepam 2 MG/ML, 1ML IVPush PRN (23:00)
[2017-02-14] MEDS: OCULAR LUBRICANT OPHTH OINT 3.5 GM EACHEYE SCH ×2 (00:06→16:47)
[2017-02-14] MEDS ORDERED: POTASSIUM CHLORIDE 20 MEQ in SODIUM CHLORIDE 0.9% 100 ML IV ONE ×2 (00:30→05:00)
[2017-02-14] MEDS: ALBUTEROL/IPRATROPIUM 2.5MG/0.5MG, 3 ML INLINE SCH ×4 (02:00→14:00)
[2017-02-14] MEDS: ACETAMINOPHEN 325 MG TABLET PO PRN (04:11)
[2017-02-14 04:36] LABS: ANION GAP 4 mmol/L (5-15); CALCIUM 8.5 mg/dL (8.5-10.1); CHLORIDE 106 mmol/L (98-107)
[2017-02-14 04:37] LABS: CREATININE 1.16 mg/dL (0.7-1.3)
[2017-02-14 04:47] LABS: MEAN CORPUSCULAR HEMOGLOBIN 32.8 pg (27.5-34.5); MEAN CORPUSCULAR HGB CONC 32.9 g/dL (33.2-36.2); MEAN CORPUSCULAR VOLUME 99.7 fL (81-97); MEAN PLATELET VOLUME 7.4 fL (7.4-10.4); PLATELET COUNT 160 x10^3/uL (130-400); RED BLOOD COUNT 3.51 x10^6/uL (4.38-5.82); RED CELL DISTRIBUTION WIDTH 14.3 % (9.4-14.8)
[2017-02-14] MEDS: METOPROLOL TARTRATE 25 MG TABLET PO SCH (04:57)
[2017-02-14] MEDS: HEPARIN 5,000 UNITS/ML, 1ML SQ SCH ×2 (04:58→16:46)
[2017-02-14] MEDS: LEVETIRACETAM 1,000 MG in SODIUM CHLORIDE 0.9% 100 ML IV SCH (05:04)
[2017-02-14] MEDS: KSCALE TO 4.5 IV SCH ×2 (05:06→11:30)
[2017-02-14 05:15] LABS: MD YES
[2017-02-14 05:17] LABS: BAND#(MANUAL) 1.13 x10^3/uL; BANDS%(MANUAL) 6 % (0-7); EOS#(MANUAL) 0.19 x10^3/uL (0.0-0.4); EOS% (MANUAL) 1 % (1-7); LYMPH#(MANUAL) 2.07 x10^3/uL (1-3.4); LYMPHS% (MANUAL) 11 % (22-44); MONOS#(MANUAL) 0.38 x10^3/uL (0.3-2.7); MONOS% (MANUAL) 2 % (2-9); MYELOCYTES# (MANUAL) 0.19 x10^3/uL (0-0); MYELOCYTES% (MANUAL) 1 % (0-0); SEG#(MANUAL) 14.85 x10^3/uL (1.8-6.8); SEGS% (MANUAL) 79 % (42-75)
[2017-02-14 05:18] LABS: <PLATELET ESTIMATE> ADEQUATE; <PLT MORPHOLOGY> NORMAL PLT MORPH; ANISOCYTOSIS 1+; POLYCHROMASIA 1+
[2017-02-14] MEDS: PROPOFOL 100 ML IV PRN ×2 (09:21→16:47)
[2017-02-14] MEDS: SENNA/DOCUSATE TABLET PO SCH (09:22)
[2017-02-14] MEDS: ASPIRIN 81 MG TABLET CHEW PO SCH (09:22)
[2017-02-14] MEDS: ALBUMIN HUMAN 25% 100 ML IV SCH (09:22)
[2017-02-14] MEDS: TICAGRELOR 90 MG TABLET PO SCH (09:22)
[2017-02-14] MEDS: FAMOTIDINE 20 MG/2 ML IVPush SCH (09:23)
[2017-02-14] MEDS: CEFAZOLIN PMX 2GM/50ML 50 ML IVPB SCH ×2 (09:23→16:46)
[2017-02-14] MEDS ORDERED: ATROPINE OPHTH SOLN 1%, 2ML MM PRN (20:00)
[2017-02-14] MEDS ORDERED: AcetaZOLAMIDE INJ 500 MG IVPush SCH (21:00)
== END 2017-02-15 00:21 | disposition expired | DRG 246 ==
LOC: ED 15:56 → CCU 15:57 → 3NW 02-14 18:48
PROVIDERS: ADMIT Internal Medicine Cardiovascular Disease; ATTEND Internal Medicine Cardiovascular Disease
PROC: 5A1955Z Respiratory Ventilation, Greater than 96 Consecutive Hours (ICD-10-PCS; principal; 2017-02-04)
PROC: 0BH17EZ Insertion of Endotracheal Airway into Trachea, Via Natural or Artificial Opening (ICD-10-PCS; 2017-02-04)
PROC: 027034Z Dilation of Coronary Artery, One Artery with Drug-eluting Intraluminal Device, Percutaneous Approach (ICD-10-PCS; 2017-02-04)
PROC: 5A12012 Performance of Cardiac Output, Single, Manual (ICD-10-PCS; 2017-02-04)
PROC: 4A023N7 Measurement of Cardiac Sampling and Pressure, Left Heart, Percutaneous Approach (ICD-10-PCS; 2017-02-04)
PROC: B2111ZZ Fluoroscopy of Multiple Coronary Arteries using Low Osmolar Contrast (ICD-10-PCS; 2017-02-04)
PROC: 0T9B70Z Drainage of Bladder with Drainage Device, Via Natural or Artificial Opening (ICD-10-PCS; 2017-02-04)
PROC: 5A2204Z Restoration of Cardiac Rhythm, Single (ICD-10-PCS; 2017-02-04)
PROC: 02HV33Z Insertion of Infusion Device into Superior Vena Cava, Percutaneous Approach (ICD-10-PCS; 2017-02-06)
DX: I21.19 ST elevation (STEMI) myocardial infarction involving other coronary artery of inferior wall (principal); J96.01 Acute respiratory failure with hypoxia; N17.0 Acute kidney failure with tubular necrosis; I46.9 Cardiac arrest, cause unspecified; J69.0 Pneumonitis due to inhalation of food and vomit; R57.9 Shock, unspecified; G93.1 Anoxic brain damage, not elsewhere classified; D68.59 Other primary thrombophilia; E87.2 Acidosis; Z99.11 Dependence on respirator [ventilator] status; I31.3 Pericardial effusion (noninflammatory); E87.70 Fluid overload, unspecified; I49.01 Ventricular fibrillation; D72.829 Elevated white blood cell count, unspecified; D75.89 Other specified diseases of blood and blood-forming organs; E78.5 Hyperlipidemia, unspecified; E87.6 Hypokalemia; F17.200 Nicotine dependence, unspecified, uncomplicated; G89.29 Other chronic pain; I10 Essential (primary) hypertension; G83.9 Paralytic syndrome, unspecified; H57.02 Anisocoria; I48.91 Unspecified atrial fibrillation; Z51.5 Encounter for palliative care; H57.04 Mydriasis; I25.10 Atherosclerotic heart disease of native coronary artery without angina pectoris; I25.2 Old myocardial infarction; Z79.891 Long term (current) use of opiate analgesic; Z95.5 Presence of coronary angioplasty implant and graft; Z66 Do not resuscitate; R56.9 Unspecified convulsions
CPT/HCPCS: 36415; 36600; 70450; 71010; 74000; 76770; 80048; 80053; 80061; 81001; 82040; 82436; 82803; 82805; 82947; 82962; 83690; 83735; 83880; 84100; 84132; 84133; 84300; 84443; 84478; 84484; 85025; 85610; 85730; 87040; 87070; 87077; 87081; 87186; 87205; 93005; 93306; 93454; 94002; 94003; 94640; 95819; 96374; C1769; C1894; J0583; J0690; J1265; J1644; J1940; J1953; J2250; J2543; J2704; J3010; J3475; J3480; J3490; J7060; J7070; J7620; P9047; C1725; C1874; C1887; J0282; J0360; J1120; J2060; J2270; J2370; J7030; J7040; J7050; Q9967; S0028